=== PATIENT | male | born 1995 | race American Indian/Alaskan Native ===

== ENCOUNTER 2019-09-24 01:57 | Emergency (ER) | payer SELFPAY ==
[2019-09-24 02:02] VITALS: BP 126/72
--- NOTE | 2019-09-24 02:27 | XRay Report ---
LEFT SHOULDER 3 VIEW(S) INDICATION / CLINICAL INFORMATION: left shoulder pain from fall COMPARISON: None available. FINDINGS: BONES / JOINT(S): No acute fracture or subluxation. Chronic appearing impaction fracture of the poste rior lateral humeral head likely represents an old Hill-Sachs defect likely related to previous shoul jared dislocation. SOFT TISSUES: No significant abnormality. ADDITIONAL FINDINGS: None. Signer Name: Shashi Murcia MD Signed: 09/24/2019 2:23 AM Workstation Name: [id number]
[2019-09-24] MEDS ORDERED: traMADol 50 MG TAB PO ONE (03:17)
--- NOTE | 2019-09-24 04:43 | Emergency Department Report ---
ED Upper Extremity Inj HPI - General Chief Complaint: Shoulder Injury Stated Complaint: DISLOCATED SHOULDER Time Seen by Provider: 09/24/19 02:49 Source: patient Mode of arrival: Ambulatory Limitations: No Limitations - History of Present Illness Initial Comments: zulma is a 24 y/o aam who presents for left lateral shoulder pain, hx or same chronic. pt states he slipped and fell on sidewalk today. now with pain and aching in left shoulder 4/10. There is no numbness no tingling no deformity no weakness. pain is exacerbated by movement , pain is relieved by nothing tried. There is no deformity, no abrasion, no laceration, no bleeding. Complaint: Injury to:: left, shoulder Onset/Timin -: days(s) Other Extremity Injury: Shoulder: Left Other Injuries: none Handedness: right Place: outdoors Severity scale (0 -10): 4 Improves With: rest Worsens With: movement of extremity Context: fall Associated Symptoms: denies: weakness, numbness - Related Data Previous Rx's Medication Instructions Recorded Last Taken Type Menthol/Camphor [[place] 1 applicatio TP QID PRN #1 tube 09/24/19 Unknown Rx Ointment] Naproxen 500 mg PO BID PRN #30 tablet 09/24/19 Unknown Rx Allergies Allergy/AdvReac Type Severity Reaction Status Date / Time No Known Allergies Allergy Unverified 09/24/19 01:59 ED Review of Systems ROS: Stated complaint: DISLOCATED SHOULDER Other details as noted in HPI Constitutional: denies: chills, fever Eyes: denies: eye pain, eye discharge, vision change ENT: denies: ear pain, throat pain Respiratory: denies: cough, shortness of breath, wheezing Cardiovascular: denies: chest pain, palpitations Endocrine: no symptoms reported Gastrointestinal: denies: abdominal pain, nausea, diarrhea Genitourinary: denies: urgency, dysuria Musculoskeletal: other (shoulder strain ). denies: back pain, joint swelling Skin: denies: rash, lesions Neurological: denies: headache, weakness, paresthesias Psychiatric: denies: anxiety, depression Hematological/Lymphatic: denies: easy bleeding, easy bruising ED Past Medical Hx - Past Medical History Previous Medical History?: No - Surgical History Past Surgical History?: No - Social History Smoking Status: Never Smoker - Medications Home Medications: Home Medications Medication Instructions Recorded Confirmed Last Taken Type Menthol/Camphor [[place] 1 applicatio TP QID PRN #1 tube 09/24/19 Unknown Rx Ointment] Naproxen 500 mg PO BID PRN #30 tablet 09/24/19 Unknown Rx ED Physical Exam - General Limitations: No Limitations General appearance: alert, in no apparent distress - Head Head exam: Present: atraumatic, normocephalic - Eye Eye exam: Present: normal appearance, PERRL, EOMI Pupils: Present: normal accommodation - ENT ENT exam: Present: mucous membranes moist - Neck Neck exam: Present: normal inspection, full ROM. Absent: tenderness - Respiratory Respiratory exam: Present: normal lung sounds bilaterally. Absent: respiratory distress, wheezes, stridor, chest wall tenderness - Cardiovascular Cardiovascular Exam: Present: regular rate, normal rhythm, normal heart sounds. Absent: systolic murmur, diastolic murmur, rubs, gallop - GI/Abdominal GI/Abdominal exam: Present: soft, normal bowel sounds. Absent: distended, tenderness, bruit, hernia - Rectal Rectal exam: Present: deferred - Extremities Exam Extremities exam: Present: full ROM, tenderness (left posterior lateral shoulder muscle tenderness no swellling no bruising no deformity, rom intact unrestricted. distal pulse intact ), normal capillary refill. Absent: joint swelling - Expanded Upper Extremity Exam Left Shoulder Exam: Present: full ROM, tenderness. Absent: swelling, abrasion, laceration, ecchymosis, deformity, crepidus, dislocation, erythema, tenderness over AC joint Upper Arm exam: Present: full ROM. Absent: tenderness Elbow exam: Present: full ROM. Absent: tenderness Forearm Wrist exam: Present: full ROM, tenderness. Absent: swelling Hand Wrist exam: Present: full ROM. Absent: tenderness Neuro motor exam: Present: wrist extension intact, thumb opposition intact, thumb IP flexion intact, thumb adduction intact Neurosensory exam: Present: radial nerve intact Vascular: Present: normal capillary refill. Absent: pulse deficit radial art - Back Exam Back exam: Present: normal inspection, full ROM. Absent: tenderness, muscle spasm, paraspinal tenderness, vertebral tenderness, rash noted - Neurological Exam Neurological exam: Present: alert, oriented X3, CN II-XII intact, normal gait, reflexes normal. Absent: motor sensory deficit - Expanded Neurological Exam Expanded Patient oriented to: Present: person, place, time Speech: Present: fluid speech Cranial nerves: EOM's Intact: Normal, Gag Reflex: Normal, Tongue Deviation: Norm al, Nystagmus: Normal, Facial Sensation: Normal Motor strength exam: RUE: 5, LUE: 5, RLE: 5, LLE: 5 Best Eye Response ([place]): (4) open spontaneously Best Motor Response ([place]): (6) obeys commands Best Verbal Response ([place]): (5) oriented Oh Total: 15 - Psychiatric Psychiatric exam: Present: normal affect, normal mood - Skin Skin exam: Present: warm, dry, intact, normal color. Absent: rash ED Course Vital Signs 09/24/19 09/24/19 01:59 03:45 Temperature 98.3 F Pulse Rate 63 Respiratory 18 18 Rate Blood Pressure 126/72 O2 Sat by Pulse 100 Oximetry ED Medical Decision Making - Radiology Data Radiology results: report reviewed, image reviewed Ordering Physician: KIRTI ESTRADA MD Date of Service: 09/24/19 Procedure(s): XR shoulder 2+V LT Accession Number(s): [id number] cc: ED MD SEAN Fluoro Time In Minutes: LEFT SHOULDER 3 VIEW(S) INDICATION / CLINICAL INFORMATION: left shoulder pain from fall COMPARISON: None available. FINDINGS: BONES / JOINT(S): No acute fracture or subluxation. Chronic appearing impaction fracture of the posterior lateral humeral head likely represents an old Hill-Sachs defect likely related to previous shoulder dislocation. SOFT TISSUES: No significant abnormality. ADDITIONAL FINDINGS: None. Signer Name: Shashi Murcia MD Signed: 09/24/2019 2:23 AM Workstation Name: [id number] Transcribed By: DT Dictated By: Juan Murcia MD Electronically Authenticated By: Juan Murcia MD Signed Date/Time: 09/24/19222 DD/ 0 TD/TT: - Medical Decision Making This is a fall with acute on chronic shoulder pain , plan: nsaids, analgesic balm, moist heat therapy, follow up with ortho, follow up with pcp in 2-3 days. return to ed if symptoms worsen. Critical care attestation.: If time is entered above; I have spent that time in minutes in the direct care of this critically ill patient, excluding procedure time. ED Disposition Clinical Impression: Fall Qualifiers: Encounter type: initial encounter Qualified Code(s): W19.XXXA - Unspecified fall, initial encounter Left shoulder strain Qualifiers: Encounter type: initial encounter Qualified Code(s): S46.912A - Strain of unspecified muscle, fascia and tendon at shoulder and upper arm level, left arm, initial encounter Disposition: TO HOME OR SELFCARE Is pt being admited?: No Does the pt Need Aspirin: No Condition: Stable Instructions: Shoulder Sprain (ED) Prescriptions: Naproxen 500 mg PO BID PRN #30 tablet PRN Reason: pain Menthol/Camphor [[place] Ointment] 1 applicatio TP QID PRN #1 tube PRN Reason: pain Referrals: GAL DOMINGUEZ MD [Staff Physician] - 3-5 Days Forms: Work/School Release Form(ED) Time of Disposition: 04:50
== END 2019-09-24 04:55 | disposition home or self-care (01) ==
LOC: ED 01:57
DX: S46.912A Strain of unspecified muscle, fascia and tendon at shoulder and upper arm level, left arm, initial encounter (principal); Z79.899 Other long term (current) drug therapy; W01.0XXA Fall on same level from slipping, tripping and stumbling without subsequent striking against object, initial encounter; Y93.89 Activity, other specified; Y92.480 Sidewalk as the place of occurrence of the external cause; Y99.8 Other external cause status